=== PATIENT | female | born 1930 | race Caucasian/White ===

== ENCOUNTER 2021-07-19 10:39 | Inpatient (IN) | payer MEDICARE ==
[2021-07-19 11:56] LABS: #Eosinphils 0.1 thou/uL (0.0-0.7); #Lymphocytes 2.1 thou/uL (1.20-3.40); #Monocytes 1.3 thou/uL (0.11-0.59); #Neutrophils 8.7 thou/uL (1.40-6.50); %Basophils 0.3 % (0.0-1.0); %Eosinophils 0.6 % (0.0-10.0); %Monocytes 10.6 % (0.0-10.0); %Neutrophils 71.5 % (42.0-75.0); Hemoglobin 12.6 g/dL (12.0-16.0); Mean Corpuscular Hemoglobin 31.5 pg (27.0-31.0); Mean Corpuscular Volume 95.4 fL (78.0-98.0); Mean Platelet Volume 7.3 fL (7.4-10.4); Platelet Count 166 thou/uL (130-400); RBC Distribution Width 12.9 % (11.5-14.5); White Blood Cell (WBC) Count 12.2 thou/uL (4.8-10.8)
[2021-07-19 12:20] LABS: ALT (SGPT) 25 U/L (8-55); AST (SGOT) 37 U/L (5-34); Albumin 3.5 g/dL (3.4-4.8); Alkaline Phosphatase 122 U/L (40-110); Anion Gap 15 mmol/L (10-20); BUN (Urea Nitrogen) 24 mg/dL (9.8-20.1); Bilirubin, Total 0.8 mg/dL (0.2-1.2); Calc. Creatinine Clearance 0 mL/min (70-130); Calcium 8.7 mg/dL (7.8-10.44); Carbon Dioxide 24 mmol/L (23-31); Chloride 99 mmol/L (98-107); Globulin 2.9 g/dL (2.4-3.5); Glucose 124 mg/dL (83-110); Potassium 4.4 mmol/L (3.5-5.1); Protein, Total 6.4 g/dL (5.8-8.1); Sodium 134 mmol/L (136-145)
[2021-07-19 12:41] LABS: CKMB 1.1 ng/mL (0-6.6)
[2021-07-19] MEDS ORDERED: Aspirin 325 MG TAB ONE (12:57)
[2021-07-19] MEDS ORDERED: Bisacodyl 5 MG TAB PO PRN (14:48)
[2021-07-19] MEDS ORDERED: Acetaminophen 650 MG Suppository PR PRN (14:48)
[2021-07-19] MEDS ORDERED: Bisacodyl 10 MG SUPP PR PRN (14:48)
[2021-07-19] MEDS ORDERED: Ondansetron ODT 4 MG TAB PO PRN (14:48)
[2021-07-19] MEDS ORDERED: Senokot S 8.6-50 MG TAB PO PRN (14:48)
[2021-07-19] MEDS ORDERED: Ondansetron PF 4 MG/2 ML Vial IVP PRN (14:48)
[2021-07-19 15:13] LABS: Troponin I 0.095 ng/mL (< 0.028)
[2021-07-19 15:24] LABS: Magnesium 1.9 mg/dL (1.6-2.6)
[2021-07-19 20:13] VITALS: BMI 24.1
[2021-07-19] MEDS: Carvedilol 3.125 MG TAB PO SCH (21:28)
[2021-07-19] MEDS ORDERED: traZODone HCl 50 MG TAB PO PRN (23:27)
[2021-07-19] MEDS ORDERED: Atorvastatin Calcium 10 MG TAB PO SCH (23:45)
[2021-07-19] MEDS ORDERED: Gabapentin 300 MG CAP PO SCH (23:45)
[2021-07-19] MEDS ORDERED: Mometasone 200 MCG/Formoterol 5 MCG 120 PUFF INHALER INH SCH (23:45)
[2021-07-19] MEDS ORDERED: Donepezil HCl 10 MG TAB PO SCH (23:45)
[2021-07-20] MEDS ORDERED: Gabapentin 300 MG CAP ONE (00:41)
[2021-07-20] MEDS ORDERED: Donepezil HCl 10 MG TAB ONE (00:41)
[2021-07-20] MEDS ORDERED: Atorvastatin Calcium 10 MG TAB ONE (00:42)
[2021-07-20] MEDS: Minoxidil 2.5 MG TAB ONE ×2 (01:37→01:39)
[2021-07-20 04:58] LABS: #Eosinphils 0.1 thou/uL (0.0-0.7); #Lymphocytes 1.9 thou/uL (1.20-3.40); #Neutrophils 7.6 thou/uL (1.40-6.50); %Basophils 0.3 % (0.0-1.0); %Eosinophils 1.1 % (0.0-10.0); %Lymphocytes 18.1 % (21.0-51.0); %Monocytes 9.2 % (0.0-10.0); %Neutrophils 71.3 % (42.0-75.0); Hemoglobin 12.2 g/dL (12.0-16.0); Mean Corpuscular HGB CONC 32.2 g/dL (32.0-36.0); Mean Corpuscular Hemoglobin 30.1 pg (27.0-31.0); Mean Corpuscular Volume 93.6 fL (78.0-98.0); Mean Platelet Volume 7.4 fL (7.4-10.4); Platelet Count 163 thou/uL (130-400); RBC Distribution Width 12.9 % (11.5-14.5); Red Blood Cell (RBC) Count 4.07 mill/uL (4.20-5.40); White Blood Cell (WBC) Count 10.7 thou/uL (4.8-10.8)
[2021-07-20 05:20] LABS: Anion Gap 12 mmol/L (10-20); BUN (Urea Nitrogen) 19 mg/dL (9.8-20.1); Calc. Creatinine Clearance 52 mL/min (70-130); Carbon Dioxide 25 mmol/L (23-31); Chloride 98 mmol/L (98-107); Glucose 119 mg/dL (83-110); Magnesium 1.9 mg/dL (1.6-2.6); Potassium 4.2 mmol/L (3.5-5.1); Sodium 131 mmol/L (136-145)
[2021-07-20] MEDS ORDERED: Furosemide 40 MG/4 ML VIAL SLOW IVP SCH (06:00)
[2021-07-20] MEDS: Mometasone 200 MCG/Formoterol 5 MCG 120 PUFF INHALER INH SCH ×2 (08:08→19:21)
[2021-07-20] MEDS: Aspirin Chewable 81 MG TAB PO SCH (08:25)
[2021-07-20] MEDS: Acetaminophen 325 MG TAB PO PRN (08:25)
[2021-07-20] MEDS: Carvedilol 3.125 MG TAB PO SCH (08:26)
[2021-07-20] MEDS: HYDROcodone/Acetaminophen 5/325 mg Tablet PO PRN (09:52)
[2021-07-20] MEDS ORDERED: Non-Formulary Item 1 EACH (Dorzolamide Hcl/Pf [Dorzolamide 2% Eye Drop] 10 ML Drops) EA EYE SCH (15:00)
[2021-07-20] MEDS: Dorzolamide HCl 2% Ophth Soln 10 ml Bottle EA EYE SCH ×2 (16:56→20:40)
[2021-07-20 18:40] LABS: SARS-CoV-2 PCR by NAA Not Detected (NotDetected)
[2021-07-20] MEDS: Gabapentin 300 MG CAP PO SCH (20:39)
[2021-07-20] MEDS: Montelukast Sodium 10 mg Tablet PO SCH (20:39)
[2021-07-20] MEDS: Donepezil HCl 10 MG TAB PO SCH (20:39)
[2021-07-20] MEDS: Atorvastatin Calcium 10 MG TAB PO SCH (20:40)
[2021-07-21 04:56] LABS: #Basophils 0.1 thou/uL (0.0-0.2); #Eosinphils 0.1 thou/uL (0.0-0.7); #Lymphocytes 2.2 thou/uL (1.20-3.40); #Monocytes 1.4 thou/uL (0.11-0.59); %Basophils 0.4 % (0.0-1.0); %Eosinophils 0.4 % (0.0-10.0); %Lymphocytes 15.8 % (21.0-51.0); %Monocytes 9.9 % (0.0-10.0); %Neutrophils 73.4 % (42.0-75.0); Hemoglobin 12.6 g/dL (12.0-16.0); Mean Corpuscular HGB CONC 32.6 g/dL (32.0-36.0); Mean Corpuscular Hemoglobin 30.7 pg (27.0-31.0); Mean Corpuscular Volume 94.2 fL (78.0-98.0); Mean Platelet Volume 7.2 fL (7.4-10.4); Platelet Count 183 thou/uL (130-400); RBC Distribution Width 12.6 % (11.5-14.5); Red Blood Cell (RBC) Count 4.11 mill/uL (4.20-5.40); White Blood Cell (WBC) Count 13.6 thou/uL (4.8-10.8)
[2021-07-21 05:18] LABS: Anion Gap 14 mmol/L (10-20); BUN (Urea Nitrogen) 28 mg/dL (9.8-20.1); Calc. Creatinine Clearance 39 mL/min (70-130); Calcium 9.3 mg/dL (7.8-10.44); Carbon Dioxide 27 mmol/L (23-31); Chloride 97 mmol/L (98-107); Glucose 124 mg/dL (83-110); Sodium 134 mmol/L (136-145)
[2021-07-21] MEDS: Levothyroxine Sodium 25 MCG TAB PO SCH (05:52)
[2021-07-21] MEDS: Mometasone 200 MCG/Formoterol 5 MCG 120 PUFF INHALER INH SCH ×2 (08:04→19:11)
[2021-07-21] MEDS ORDERED: Artificial Tear Sol 15 ML BOT EA EYE PRN (08:07)
[2021-07-21] MEDS ORDERED: Non-Formulary Item 1 EACH (Levothyroxine Sodium [Levothyroxine] 25 MCG Capsule) PO SCH (09:00)
[2021-07-21] MEDS: Aspirin Chewable 81 MG TAB PO SCH (09:39)
[2021-07-21] MEDS: Acetaminophen 325 MG TAB PO PRN (09:39)
[2021-07-21] MEDS: Trospium 20 MG TAB PO SCH ×2 (09:39→22:06)
[2021-07-21] MEDS: Nitrofurantoin Macrocrystal 50 MG CAP PO SCH (09:39)
[2021-07-21] MEDS: Pepto Bismol Chew TAB PO SCH (09:39)
[2021-07-21] MEDS: Enoxaparin Sodium 30 MG/0.3 ML SYRINGE SC SCH (09:40)
[2021-07-21] MEDS: Dorzolamide HCl 2% Ophth Soln 10 ml Bottle EA EYE SCH ×3 (09:40→22:05)
[2021-07-21] MEDS ORDERED: Azithromycin 500 MG in Sodium Chloride 0.9% 250 ML 250 ML IVPB SCH (10:00)
[2021-07-21] MEDS: cefTRIAXone\\ROCEPHIN 1 GM in Sodium Chloride 0.9% 100 ML IVPB SCH (10:32)
[2021-07-21] MEDS: Azithromycin 500 MG in Sodium Chloride 0.9% 250 ML 250 ML IVPB SCH (11:41)
[2021-07-21 12:12] LABS: Bilirubin Negative (Negative); Blood, Urine Negative (Negative); Clarity Clear (Clear); Glucose, Urine (Dipstick) Normal (Negative); Ketone, Urine Negative (Negative); Leukocyte Negative Leu/uL (Negative); Nitrite Negative (Negative); Protein, Urine (Dipstick) 30 mg/dL (Neg-Trace); RBC/HPF 0-3 HPF (0-3); Specific Gravity, Urine 1.021 (1.002-1.036); Squamous Epithelial 0-3 HPF (0-3); Urobilinogen Normal mg/dL (Less than 2); WBC/HPF 0-3 HPF (0-3); pH, Urine 5.5 (5.0-9.0)
[2021-07-21 12:13] LABS: Bacteria/HPF 1+ HPF (None Seen)
[2021-07-21 12:15] LABS: Urine Culture Reflex Yes Yes
[2021-07-21] MEDS: HYDROcodone/Acetaminophen 5/325 mg Tablet PO PRN (12:25)
[2021-07-21] MEDS: Atorvastatin Calcium 10 MG TAB PO SCH (22:03)
[2021-07-21] MEDS: Gabapentin 300 MG CAP PO SCH (22:04)
[2021-07-21] MEDS: Donepezil HCl 10 MG TAB PO SCH (22:05)
[2021-07-21] MEDS: Montelukast Sodium 10 mg Tablet PO SCH (22:07)
[2021-07-21] MEDS: Erythromycin Base 0.5% Oint 1 GM TUBE EA EYE SCH (22:47)
[2021-07-22 05:39] LABS: #Basophils 0.1 thou/uL (0.0-0.2); #Eosinphils 0.1 thou/uL (0.0-0.7); #Lymphocytes 1.8 thou/uL (1.20-3.40); #Neutrophils 9.4 thou/uL (1.40-6.50); %Basophils 0.8 % (0.0-1.0); %Eosinophils 0.5 % (0.0-10.0); %Lymphocytes 14.5 % (21.0-51.0); %Monocytes 8.2 % (0.0-10.0); %Neutrophils 76.1 % (42.0-75.0); Hemoglobin 11.5 g/dL (12.0-16.0); Mean Corpuscular HGB CONC 31.8 g/dL (32.0-36.0); Mean Corpuscular Volume 94.3 fL (78.0-98.0); Mean Platelet Volume 6.8 fL (7.4-10.4); Platelet Count 223 thou/uL (130-400); RBC Distribution Width 12.7 % (11.5-14.5); Red Blood Cell (RBC) Count 3.83 mill/uL (4.20-5.40); White Blood Cell (WBC) Count 12.4 thou/uL (4.8-10.8)
[2021-07-22] MEDS: Levothyroxine Sodium 25 MCG TAB PO SCH (05:42)
[2021-07-22 06:02] LABS: Anion Gap 12 mmol/L (10-20); BUN (Urea Nitrogen) 26 mg/dL (9.8-20.1); Calc. Creatinine Clearance 53 mL/min (70-130); Carbon Dioxide 29 mmol/L (23-31); Chloride 98 mmol/L (98-107); Glucose 108 mg/dL (83-110); Potassium 4.1 mmol/L (3.5-5.1); Sodium 135 mmol/L (136-145)
[2021-07-22] MEDS: Mometasone 200 MCG/Formoterol 5 MCG 120 PUFF INHALER INH SCH ×2 (07:29→18:38)
[2021-07-22] MEDS: Enoxaparin Sodium 30 MG/0.3 ML SYRINGE SC SCH (09:03)
[2021-07-22] MEDS: Pepto Bismol Chew TAB PO SCH (09:03)
[2021-07-22] MEDS: Aspirin Chewable 81 MG TAB PO SCH (09:03)
[2021-07-22] MEDS: Trospium 20 MG TAB PO SCH ×2 (09:04→19:56)
[2021-07-22] MEDS: Nitrofurantoin Macrocrystal 50 MG CAP PO SCH (09:04)
[2021-07-22] MEDS: Dorzolamide HCl 2% Ophth Soln 10 ml Bottle EA EYE SCH ×3 (09:05→19:59)
[2021-07-22] MEDS: cefTRIAXone\\ROCEPHIN 1 GM in Sodium Chloride 0.9% 100 ML IVPB SCH (09:29)
[2021-07-22] MEDS: Azithromycin 500 MG in Sodium Chloride 0.9% 250 ML 250 ML IVPB SCH (10:27)
[2021-07-22] MEDS ORDERED: predniSONE 20 MG TAB PO SCH (11:00)
[2021-07-22] MEDS: Gabapentin 300 MG CAP PO SCH (19:56)
[2021-07-22] MEDS: Montelukast Sodium 10 mg Tablet PO SCH (19:57)
[2021-07-22] MEDS: Donepezil HCl 10 MG TAB PO SCH (19:57)
[2021-07-22] MEDS: Atorvastatin Calcium 10 MG TAB PO SCH (19:57)
[2021-07-22] MEDS: traZODone HCl 50 MG TAB PO PRN (19:58)
[2021-07-22] MEDS: Erythromycin Base 0.5% Oint 1 GM TUBE EA EYE SCH (19:59)
[2021-07-23 05:43] LABS: #Basophils 0.1 thou/uL (0.0-0.2); #Lymphocytes 1.6 thou/uL (1.20-3.40); #Monocytes 0.9 thou/uL (0.11-0.59); #Neutrophils 10.1 thou/uL (1.40-6.50); %Basophils 0.7 % (0.0-1.0); %Eosinophils 0.1 % (0.0-10.0); %Lymphocytes 12.5 % (21.0-51.0); %Monocytes 6.9 % (0.0-10.0); %Neutrophils 79.9 % (42.0-75.0); Hemoglobin 11.2 g/dL (12.0-16.0); Mean Corpuscular HGB CONC 31.7 g/dL (32.0-36.0); Mean Corpuscular Hemoglobin 29.8 pg (27.0-31.0); Mean Corpuscular Volume 94.1 fL (78.0-98.0); Mean Platelet Volume 6.9 fL (7.4-10.4); Platelet Count 301 thou/uL (130-400); RBC Distribution Width 12.6 % (11.5-14.5); Red Blood Cell (RBC) Count 3.77 mill/uL (4.20-5.40); White Blood Cell (WBC) Count 12.6 thou/uL (4.8-10.8)
[2021-07-23] MEDS: Levothyroxine Sodium 25 MCG TAB PO SCH (05:53)
[2021-07-23 06:08] LABS: Anion Gap 12 mmol/L (10-20); BUN (Urea Nitrogen) 23 mg/dL (9.8-20.1); Calc. Creatinine Clearance 53 mL/min (70-130); Calcium 9.5 mg/dL (7.8-10.44); Carbon Dioxide 28 mmol/L (23-31); Chloride 98 mmol/L (98-107); Glucose 143 mg/dL (83-110); Sodium 134 mmol/L (136-145)
[2021-07-23] MEDS: Mometasone 200 MCG/Formoterol 5 MCG 120 PUFF INHALER INH SCH ×2 (07:25→18:59)
[2021-07-23] MEDS: Aspirin Chewable 81 MG TAB PO SCH (08:01)
[2021-07-23] MEDS: predniSONE 20 MG TAB PO SCH (08:01)
[2021-07-23] MEDS: Trospium 20 MG TAB PO SCH ×2 (08:02→20:40)
[2021-07-23] MEDS: Nitrofurantoin Macrocrystal 50 MG CAP PO SCH (08:02)
[2021-07-23] MEDS: Enoxaparin Sodium 30 MG/0.3 ML SYRINGE SC SCH (08:02)
[2021-07-23] MEDS: Pepto Bismol Chew TAB PO SCH (08:02)
[2021-07-23] MEDS: Dorzolamide HCl 2% Ophth Soln 10 ml Bottle EA EYE SCH ×3 (08:03→21:47)
[2021-07-23] MEDS ORDERED: Enoxaparin Sodium 40 MG/0.4 ML SYRINGE SC SCH (09:00)
[2021-07-23] MEDS: cefTRIAXone\\ROCEPHIN 1 GM in Sodium Chloride 0.9% 100 ML IVPB SCH (09:27)
[2021-07-23] MEDS: Azithromycin 500 MG in Sodium Chloride 0.9% 250 ML 250 ML IVPB SCH (10:27)
[2021-07-23] MEDS ORDERED: Furosemide 20 MG TAB PO SCH (11:15)
[2021-07-23] MEDS: hydrALAZINE 20 MG/ML VIAL SLOW IVP PRN (17:27)
[2021-07-23] MEDS: Gabapentin 300 MG CAP PO SCH (20:40)
[2021-07-23] MEDS: Atorvastatin Calcium 10 MG TAB PO SCH (20:40)
[2021-07-23] MEDS: Montelukast Sodium 10 mg Tablet PO SCH (20:40)
[2021-07-23] MEDS: Enoxaparin Sodium 80 MG/0.8 ML SYRINGE SC SCH (20:43)
[2021-07-23] MEDS: Donepezil HCl 10 MG TAB PO SCH (20:43)
[2021-07-23] MEDS: Erythromycin Base 0.5% Oint 1 GM TUBE EA EYE SCH (21:47)
[2021-07-24 04:31] LABS: #Lymphocytes 2.2 thou/uL (1.20-3.40); #Monocytes 0.8 thou/uL (0.11-0.59); #Neutrophils 11.2 thou/uL (1.40-6.50); %Basophils 0.3 % (0.0-1.0); %Eosinophils 0.1 % (0.0-10.0); %Lymphocytes 15.5 % (21.0-51.0); %Monocytes 5.6 % (0.0-10.0); %Neutrophils 78.4 % (42.0-75.0); Hemoglobin 11.7 g/dL (12.0-16.0); Mean Corpuscular Hemoglobin 30.1 pg (27.0-31.0); Mean Corpuscular Volume 93.9 fL (78.0-98.0); Mean Platelet Volume 6.6 fL (7.4-10.4); Platelet Count 355 thou/uL (130-400); RBC Distribution Width 12.7 % (11.5-14.5); Red Blood Cell (RBC) Count 3.88 mill/uL (4.20-5.40); White Blood Cell (WBC) Count 14.3 thou/uL (4.8-10.8)
[2021-07-24 04:55] LABS: Anion Gap 13 mmol/L (10-20); BUN (Urea Nitrogen) 27 mg/dL (9.8-20.1); Calc. Creatinine Clearance 51 mL/min (70-130); Calcium 9.2 mg/dL (7.8-10.44); Carbon Dioxide 28 mmol/L (23-31); Chloride 100 mmol/L (98-107); Glucose 120 mg/dL (83-110); Potassium 3.9 mmol/L (3.5-5.1); Sodium 137 mmol/L (136-145)
[2021-07-24] MEDS: Levothyroxine Sodium 25 MCG TAB PO SCH (05:06)
[2021-07-24] MEDS: hydrALAZINE 20 MG/ML VIAL SLOW IVP PRN ×3 (05:07→21:31)
[2021-07-24] MEDS: Mometasone 200 MCG/Formoterol 5 MCG 120 PUFF INHALER INH SCH ×2 (06:55→19:16)
[2021-07-24] MEDS ORDERED: Amlodipine 5 MG TAB PO SCH (09:00)
[2021-07-24] MEDS: Enoxaparin Sodium 80 MG/0.8 ML SYRINGE SC SCH ×2 (09:34→21:24)
[2021-07-24] MEDS: Aspirin Chewable 81 MG TAB PO SCH (09:34)
[2021-07-24] MEDS: Furosemide 20 MG TAB PO SCH (09:34)
[2021-07-24] MEDS: Pepto Bismol Chew TAB PO SCH (09:34)
[2021-07-24] MEDS: Dorzolamide HCl 2% Ophth Soln 10 ml Bottle EA EYE SCH ×3 (09:34→21:23)
[2021-07-24] MEDS: predniSONE 20 MG TAB PO SCH (09:34)
[2021-07-24] MEDS: Nitrofurantoin Macrocrystal 50 MG CAP PO SCH (09:34)
[2021-07-24] MEDS: Trospium 20 MG TAB PO SCH ×2 (09:35→21:25)
[2021-07-24] MEDS: cefTRIAXone\\ROCEPHIN 1 GM in Sodium Chloride 0.9% 100 ML IVPB SCH (11:55)
[2021-07-24] MEDS: Azithromycin 500 MG in Sodium Chloride 0.9% 250 ML 250 ML IVPB SCH (12:38)
[2021-07-24] MEDS: Gabapentin 300 MG CAP PO SCH (21:25)
[2021-07-24] MEDS: Donepezil HCl 10 MG TAB PO SCH (21:25)
[2021-07-24] MEDS: Atorvastatin Calcium 10 MG TAB PO SCH (21:25)
[2021-07-24] MEDS: Montelukast Sodium 10 mg Tablet PO SCH (21:25)
[2021-07-24] MEDS: Erythromycin Base 0.5% Oint 1 GM TUBE EA EYE SCH (21:26)
[2021-07-24] MEDS: traZODone HCl 50 MG TAB PO PRN (23:22)
[2021-07-25] MEDS: Levothyroxine Sodium 25 MCG TAB PO SCH (05:36)
[2021-07-25] MEDS: Mometasone 200 MCG/Formoterol 5 MCG 120 PUFF INHALER INH SCH ×2 (06:16→17:50)
[2021-07-25] MEDS: Aspirin Chewable 81 MG TAB PO SCH (08:49)
[2021-07-25] MEDS: Trospium 20 MG TAB PO SCH ×2 (08:49→22:04)
[2021-07-25] MEDS: Furosemide 20 MG TAB PO SCH (08:50)
[2021-07-25] MEDS: Enoxaparin Sodium 80 MG/0.8 ML SYRINGE SC SCH ×2 (08:50→22:04)
[2021-07-25] MEDS: predniSONE 20 MG TAB PO SCH (08:50)
[2021-07-25] MEDS: Metoprolol Tartrate 25 MG TAB PO SCH ×2 (08:50→22:05)
[2021-07-25] MEDS: Nitrofurantoin Macrocrystal 50 MG CAP PO SCH (08:51)
[2021-07-25] MEDS: Dorzolamide HCl 2% Ophth Soln 10 ml Bottle EA EYE SCH ×3 (08:52→22:05)
[2021-07-25] MEDS: Pepto Bismol Chew TAB PO SCH (08:52)
[2021-07-25] MEDS: cefTRIAXone\\ROCEPHIN 1 GM in Sodium Chloride 0.9% 100 ML IVPB SCH (11:52)
[2021-07-25] MEDS: Azithromycin 500 MG in Sodium Chloride 0.9% 250 ML 250 ML IVPB SCH (11:53)
[2021-07-25] MEDS: Gabapentin 300 MG CAP PO SCH ×2 (22:03→22:24)
[2021-07-25] MEDS: Montelukast Sodium 10 mg Tablet PO SCH (22:05)
[2021-07-25] MEDS: Atorvastatin Calcium 10 MG TAB PO SCH (22:05)
[2021-07-25] MEDS: Donepezil HCl 10 MG TAB PO SCH (22:05)
[2021-07-25] MEDS: Erythromycin Base 0.5% Oint 1 GM TUBE EA EYE SCH (22:06)
[2021-07-26] MEDS: Levothyroxine Sodium 25 MCG TAB PO SCH (06:37)
[2021-07-26] MEDS: Mometasone 200 MCG/Formoterol 5 MCG 120 PUFF INHALER INH SCH ×2 (07:30→18:49)
[2021-07-26] MEDS: Enoxaparin Sodium 80 MG/0.8 ML SYRINGE SC SCH ×2 (08:15→20:38)
[2021-07-26] MEDS: Aspirin Chewable 81 MG TAB PO SCH (08:16)
[2021-07-26] MEDS: Trospium 20 MG TAB PO SCH ×2 (08:16→20:37)
[2021-07-26] MEDS: Nitrofurantoin Macrocrystal 50 MG CAP PO SCH (08:16)
[2021-07-26] MEDS: predniSONE 20 MG TAB PO SCH (08:17)
[2021-07-26] MEDS: Furosemide 20 MG TAB PO SCH (08:17)
[2021-07-26] MEDS: Pepto Bismol Chew TAB PO SCH (08:17)
[2021-07-26] MEDS: Metoprolol Tartrate 25 MG TAB PO SCH (08:17)
[2021-07-26] MEDS: Diltiazem HCl CD 300 mg Capsule PO SCH (08:30)
[2021-07-26] MEDS: Dorzolamide HCl 2% Ophth Soln 10 ml Bottle EA EYE SCH ×3 (08:31→20:38)
[2021-07-26] MEDS: Donepezil HCl 10 MG TAB PO SCH (20:37)
[2021-07-26] MEDS: Atorvastatin Calcium 10 MG TAB PO SCH (20:37)
[2021-07-26] MEDS: Gabapentin 300 MG CAP PO SCH (20:37)
[2021-07-26] MEDS: Montelukast Sodium 10 mg Tablet PO SCH (20:37)
[2021-07-26] MEDS: Erythromycin Base 0.5% Oint 1 GM TUBE EA EYE SCH (20:38)
[2021-07-27 04:41] VITALS: TEMP 97.7
[2021-07-27] MEDS: Levothyroxine Sodium 25 MCG TAB PO SCH (06:05)
[2021-07-27] MEDS: Mometasone 200 MCG/Formoterol 5 MCG 120 PUFF INHALER INH SCH (08:00)
[2021-07-27] MEDS: Enoxaparin Sodium 80 MG/0.8 ML SYRINGE SC SCH (08:13)
[2021-07-27] MEDS: Nitrofurantoin Macrocrystal 50 MG CAP PO SCH (08:14)
[2021-07-27] MEDS: Furosemide 20 MG TAB PO SCH (08:14)
[2021-07-27] MEDS: Aspirin Chewable 81 MG TAB PO SCH (08:14)
[2021-07-27] MEDS: Pepto Bismol Chew TAB PO SCH (08:14)
[2021-07-27] MEDS: Trospium 20 MG TAB PO SCH (08:14)
[2021-07-27] MEDS: Diltiazem HCl CD 300 mg Capsule PO SCH (08:14)
[2021-07-27] MEDS: Dorzolamide HCl 2% Ophth Soln 10 ml Bottle EA EYE SCH (08:15)
[2021-07-27 08:30] VITALS: BP 174/77
[2021-07-27 11:56] LABS: SARS-CoV-2 PCR by NAA Not Detected (NotDetected)
== END 2021-07-27 13:30 | DRG 175 ==
LOC: ERS 10:39 → ERHOLD 13:52 → NEURO 19:31 → OBSVTOIN 07-20 15:57 → 2NO 07-23 20:02 → T4-B 07-25 10:59
PROVIDERS: ADMIT Internal Medicine; ATTEND Internal Medicine
DX: I26.99 Other pulmonary embolism without acute cor pulmonale (principal); J96.01 Acute respiratory failure with hypoxia; I50.32 Chronic diastolic (congestive) heart failure; Z66 Do not resuscitate; E87.1 Hypo-osmolality and hyponatremia; R44.3 Hallucinations, unspecified; I47.1 Supraventricular tachycardia; Z20.822 Contact with and (suspected) exposure to COVID-19; F03.90 Unspecified dementia, unspecified severity, without behavioral disturbance, psychotic disturbance, mood disturbance, and anxiety; R79.89 Other specified abnormal findings of blood chemistry; G62.9 Polyneuropathy, unspecified; G89.29 Other chronic pain; I11.0 Hypertensive heart disease with heart failure; K52.9 Noninfective gastroenteritis and colitis, unspecified; M54.9 Dorsalgia, unspecified; R30.0 Dysuria; G47.00 Insomnia, unspecified; H04.123 Dry eye syndrome of bilateral lacrimal glands; J45.30 Mild persistent asthma, uncomplicated; E78.5 Hyperlipidemia, unspecified; E03.9 Hypothyroidism, unspecified; Z88.2 Allergy status to sulfonamides; Z88.8 Allergy status to other drugs, medicaments and biological substances; Z90.49 Acquired absence of other specified parts of digestive tract; Z98.890 Other specified postprocedural states; Z91.81 History of falling
CPT/HCPCS: 36415; 71045; 71275; 72131; 80048; 80053; 81001; 82553; 83735; 83880; 84443; 84484; 85025; 85379; 87040; 87086; 93005; 93306; 93798; 94640; 96374; G0378; J0360; J0456; J0696; J1650; J1940; J3490; J7050; J7512; J7620; U0003; U0005